=== PATIENT | female | born 1990 | race Caucasian/White ===

== ENCOUNTER 2016-12-10 04:51 | Emergency (ER) | payer MEDICAID ==
[~2016-12-10] VITALS: Ht 157.5 cm; Wt 93.6 kg
[2016-12-10] MEDS ORDERED: IBUP800T PO (05:11)
[2016-12-10] MEDS ORDERED: ALBUTEROL (05:13)
[2016-12-10] MEDS ORDERED: STEROID INHALER (05:13)
[2016-12-10] MEDS ORDERED: ALBUTEROL/IPRATROPIUM 2.5MG/0.5MG, 3 ML NPPB SCH (05:30)
[2016-12-10] MEDS ORDERED: ALBUTEROL/IPRATROPIUM 2.5MG/0.5MG, 3 ML ONE (05:33)
[2016-12-10 06:24] VITALS: BP 121/72
== END 2016-12-10 06:27 | disposition home or self-care (01) ==
LOC: ED 06:21
DX: J15.9 Unspecified bacterial pneumonia (principal); F17.210 Nicotine dependence, cigarettes, uncomplicated; G89.29 Other chronic pain; Z90.710 Acquired absence of both cervix and uterus
CPT/HCPCS: 71020; 94640; 99284; J7512; J7620

== ENCOUNTER 2017-12-21 14:43 | Emergency (ER) | payer MEDICAID ==
[~2017-12-21] VITALS: Ht 154.9 cm; Wt 96.3 kg
[~2017-12-21 14:43] MED LIST: ALBUTEROL; IBUP-1223 PO; STEROID INHALER
[2017-12-21 15:22] LABS: BASOPHILS # (AUTO) 0.03 x10^3/uL (0-0.1); BASOPHILS % (AUTO) 0 % (0-1); EOSINOPHILS # (AUTO) 0.23 x10^3/uL (0-0.4); EOSINOPHILS % (AUTO) 3 % (1-7); LYMPHOCYTES # (AUTO) 2.04 x10^3/uL (1-3.4); LYMPHOCYTES % (AUTO) 25 % (22-44); MD NO; MEAN CORPUSCULAR HEMOGLOBIN 31.7 pg (27.0-34.8); MEAN CORPUSCULAR HGB CONC 33.8 g/dL (32.4-35.8); MEAN CORPUSCULAR VOLUME 93.7 fL (80-100); MEAN PLATELET VOLUME 7.2 fL (7.4-10.4); MONOCYTES # (AUTO) 0.44 x10^3/uL (0.2-0.8); MONOCYTES % (AUTO) 5 % (2-9); NEUTROPHILS # (AUTO) 5.42 x10^3/uL (1.8-6.8); NEUTROPHILS % (AUTO) 67 % (42-75); PLATELET COUNT 402 x10^3/uL (130-400); RED BLOOD COUNT 4.83 x10^6/uL (3.82-5.3); RED CELL DISTRIBUTION WIDTH 13.3 % (9.6-15.2)
[2017-12-21 15:31] LABS: ALANINE AMINOTRANSFERASE 60 U/L (12-78); ALBUMIN 3.6 g/dL (3.4-5.0); ANION GAP 7 mmol/L (5-15); CALCIUM 8.4 mg/dL (8.5-10.1); CHLORIDE 107 mmol/L (98-107); CREATININE 0.93 mg/dL (0.55-1.02)
[2017-12-21 15:34] LABS: ALKALINE PHOSPHATASE 67 U/L (45-117); BILIRUBIN,TOTAL 0.5 mg/dL (0.2-1.0); TOTAL PROTEIN 7.7 g/dL (6.4-8.2)
[2017-12-21 15:36] LABS: MICROSCOPIC INDICATED
[2017-12-21 15:47] LABS: CULTURE INDICATED? YES
[2017-12-21 15:52] VITALS: BP 110/73
[2017-12-21] MEDS ORDERED: SODIUM CHLORIDE 0.9% 1,000ML IVBOLUS ONE (16:00)
[2017-12-21] MEDS ORDERED: MORPHINE SULFATE 4 MG/ML, 1ML IVPush PRN (16:00)
[2017-12-21] MEDS ORDERED: SODIUM CHLORIDE FLUSH 10ML SYR IVF ONE (16:00)
[2017-12-21] MEDS ORDERED: FAMOTIDINE 20 MG/2 ML IVP ONE (16:00)
[2017-12-21] MEDS ORDERED: OMNIPAQUE 350 MG/ML, 100ML BOTTLE ONE (16:08)
[2017-12-21] MEDS ORDERED: FAMOTIDINE 20 MG/2 ML ONE (16:09)
[2017-12-21] MEDS ORDERED: MORPHINE SULFATE 4 MG/ML, 1ML ONE (16:09)
== END 2017-12-21 17:02 | disposition home or self-care (01) ==
LOC: ED 16:40
DX: R10.31 Right lower quadrant pain (principal); R11.2 Nausea with vomiting, unspecified; R19.7 Diarrhea, unspecified; G43.909 Migraine, unspecified, not intractable, without status migrainosus
CPT/HCPCS: 36415; 74177; 80053; 81001; 83690; 85025; 87086; 96374; 96375; 99285; J7030; Q9967; S0028

== ENCOUNTER 2018-06-30 14:14 | Emergency (ER) | payer MEDICAID, OTHER ==
[~2018-06-30] VITALS: Ht 154.9 cm; Wt 129.0 kg
[2018-06-30 14:17] VITALS: BP 117/83
[2018-06-30] MEDS ORDERED: DEXAMETHASONE 4 MG/ML, 1ML ONE (14:47)
[2018-06-30] MEDS ORDERED: DEXAMETHASONE 4 MG/ML, 1ML PO ONE (15:00)
== END 2018-06-30 15:13 | disposition home or self-care (01) ==
LOC: ED 14:45
DX: B34.9 Viral infection, unspecified (principal); F17.200 Nicotine dependence, unspecified, uncomplicated; G43.909 Migraine, unspecified, not intractable, without status migrainosus
CPT/HCPCS: 71046; 99283; J1100

== ENCOUNTER 2018-08-02 19:54 | Emergency (ER) | payer OTHER ==
[~2018-08-02] VITALS: Ht 154.9 cm; Wt 107.7 kg
[2018-08-02 20:07] VITALS: BP 134/88
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
[2018-08-02] MEDS ORDERED: IBUPROFEN 200 MG TABLET ONE (20:25)
--- NOTE | 2018-08-02 20:26 | NUR ---
pt to xray
[2018-08-02] MEDS ORDERED: IBUPROFEN 200 MG TABLET PO ONE (20:30)
--- NOTE | 2018-08-02 20:37 | NUR ---
PT MEDICATED PER SEP, AWAITING XRAY RESULTS
--- NOTE | 2018-08-02 20:47 | NUR ---
PROVIDED PT WITH WARM BLANKET, DENIES FURTHER NEEDS. AWAITING XRAY RESULT
== END 2018-08-02 21:11 | disposition home or self-care (01) ==
LOC: ED 21:05
DX: S43.402A Unspecified sprain of left shoulder joint, initial encounter (principal); G89.29 Other chronic pain; G43.909 Migraine, unspecified, not intractable, without status migrainosus; V49.49XA Driver injured in collision with other motor vehicles in traffic accident, initial encounter; Y93.89 Activity, other specified; Y92.89 Other specified places as the place of occurrence of the external cause; Y99.8 Other external cause status
CPT/HCPCS: 72050; 99283

== ENCOUNTER 2018-09-28 14:48 | Emergency (ER) | payer BC ==
[~2018-09-28] VITALS: Ht 154.9 cm; Wt 108.4 kg
[2018-09-28 15:09] LABS: BASOPHILS # (AUTO) 0.05 x10^3/uL (0-0.1); BASOPHILS % (AUTO) 1 % (0-1); EOSINOPHILS # (AUTO) 0.44 x10^3/uL (0-0.4); EOSINOPHILS % (AUTO) 5 % (1-7); LYMPHOCYTES # (AUTO) 2.99 x10^3/uL (1-3.4); LYMPHOCYTES % (AUTO) 31 % (22-44); MD NO; MEAN CORPUSCULAR HEMOGLOBIN 31.6 pg (27.0-34.8); MEAN CORPUSCULAR HGB CONC 33.5 g/dL (32.4-35.8); MEAN CORPUSCULAR VOLUME 94.2 fL (80-100); MEAN PLATELET VOLUME 7.4 fL (7.4-10.4); MONOCYTES # (AUTO) 0.54 x10^3/uL (0.2-0.8); MONOCYTES % (AUTO) 6 % (2-9); NEUTROPHILS % (AUTO) 58 % (42-75); PLATELET COUNT 389 x10^3/uL (130-400); RED BLOOD COUNT 4.47 x10^6/uL (3.82-5.3); RED CELL DISTRIBUTION WIDTH 13.3 % (9.6-15.2)
[2018-09-28 15:21] LABS: ALANINE AMINOTRANSFERASE 69 U/L (12-78); ALBUMIN 3.9 g/dL (3.4-5.0); ANION GAP 7 mmol/L (5-15); CALCIUM 8.1 mg/dL (8.5-10.1); CHLORIDE 106 mmol/L (98-107); CREATININE 0.95 mg/dL (0.55-1.02)
[2018-09-28 15:25] LABS: ALKALINE PHOSPHATASE 53 U/L (45-117); BILIRUBIN,TOTAL 0.3 mg/dL (0.2-1.0); TOTAL PROTEIN 7.6 g/dL (6.4-8.2)
[2018-09-28 15:56] LABS: MICROSCOPIC AUTO
[2018-09-28 15:57] LABS: CULTURE INDICATED? YES
--- NOTE | 2018-09-28 16:00 | NUR ---
PT. IS A & O X 4 WITH C/O RIGHT FLANK PAIN AND UTI SYMPTOMS. PT. IS PINK,WARM AND DRY. LUNGS ARE CTA. MM ARE PINK AND MOIST WITH PULSES +2 THROUGHOUT. PT. WAS GIVEN A BLANKET FOR WARMTH. PT.'S ABD. IS SOFT AND NON-TENDER WITH BS + X 4 QUADS.
--- NOTE | 2018-09-28 16:23 | NUR ---
Patient/Caregiver given discharge instructions and they have confirmed that they understand the instructions. Patient ambulatory with steady gait.
[2018-09-28 16:26] VITALS: BP 125/72
== END 2018-09-28 16:29 | disposition home or self-care (01) ==
LOC: ED 16:09
DX: N30.01 Acute cystitis with hematuria (principal); G43.909 Migraine, unspecified, not intractable, without status migrainosus; Z90.710 Acquired absence of both cervix and uterus; F17.200 Nicotine dependence, unspecified, uncomplicated
CPT/HCPCS: 36415; 80053; 81001; 84703; 85025; 87077; 87086; 87186; 99283

== ENCOUNTER 2019-05-23 20:10 | Emergency (ER) | payer MEDICAID ==
[~2019-05-23] VITALS: Ht 160 cm; Wt 104.0 kg
[2019-05-23 20:16] VITALS: BP 120/75
[2019-05-23] MEDS ORDERED: DEXAMETHASONE 4 MG TABLET PO ONE (22:00)
[2019-05-23 22:13] LABS: RAPID INFLUENZA A Negative (Negative); RAPID INFLUENZA B Negative (Negative)
[2019-05-23] MEDS ORDERED: DEXAMETHASONE 4 MG TABLET ONE (22:30)
--- NOTE | 2019-05-23 22:33 | NUR ---
MEDICATED PER EMAR
== END 2019-05-23 22:54 | disposition home or self-care (01) ==
LOC: ED 22:30
DX: J02.0 Streptococcal pharyngitis (principal); H69.83 Other specified disorders of Eustachian tube, bilateral; F17.210 Nicotine dependence, cigarettes, uncomplicated
CPT/HCPCS: 71046; 87081; 87147; 87400; 87880; 99284

== ENCOUNTER 2020-05-17 12:37 | Emergency (ER) | payer MEDICAID ==
[~2020-05-17] VITALS: Ht 154.9 cm; Wt 107.0 kg
[2020-05-17] MEDS ORDERED: IBUPROFEN 800 MG TABLET ONE (13:13)
--- NOTE | 2020-05-17 13:19 | NUR ---
PT TO XR.
--- NOTE | 2020-05-17 13:28 | NUR ---
ALL TESTS RESULTED. PT IS UP FOR RECHECK AT THIS TIME.
[2020-05-17] MEDS ORDERED: IBUPROFEN 200 MG TABLET PO ONE (13:30)
[2020-05-17 13:45] VITALS: BP 128/74
== END 2020-05-17 13:50 | disposition home or self-care (01) ==
LOC: ED 13:12
DX: S43.402A Unspecified sprain of left shoulder joint, initial encounter (principal); E11.9 Type 2 diabetes mellitus without complications; G43.909 Migraine, unspecified, not intractable, without status migrainosus; W17.89XA Other fall from one level to another, initial encounter; Y93.89 Activity, other specified; Y92.098 Other place in other non-institutional residence as the place of occurrence of the external cause; Y99.8 Other external cause status
CPT/HCPCS: 99283

== ENCOUNTER 2020-12-04 09:31 | Emergency (ER) | payer MEDICAID ==
[~2020-12-04] VITALS: Ht 154.9 cm; Wt 105.1 kg
[2020-12-04 10:22] LABS: MICROSCOPIC INDICATED
[2020-12-04 10:57] LABS: BASOPHILS % (AUTO) 1 % (0-1); EOSINOPHILS % (AUTO) 4 % (1-7); LYMPHOCYTES % (AUTO) 30 % (22-44); MD NO; MEAN CORPUSCULAR HEMOGLOBIN 33.2 pg (27.0-34.8); MEAN CORPUSCULAR HGB CONC 35.1 g/dL (32.4-35.8); MEAN PLATELET VOLUME 7.4 fL (7.4-10.4); MONOCYTES % (AUTO) 5 % (2-9); NEUTROPHILS % (AUTO) 60 % (42-75); PLATELET COUNT 336 x10^3/uL (130-400); RED BLOOD COUNT 4.68 x10^6/uL (3.82-5.3); RED CELL DISTRIBUTION WIDTH 13.2 % (9.6-15.2)
[2020-12-04 11:04] VITALS: BP 95/56
[2020-12-04 11:08] LABS: ALANINE AMINOTRANSFERASE 74 U/L (12-78); ALBUMIN 3.3 g/dL (3.4-5.0); ANION GAP 5 mmol/L (5-15); CALCIUM 8.1 mg/dL (8.5-10.1); CHLORIDE 110 mmol/L (98-107); CREATININE 0.86 mg/dL (0.55-1.02)
[2020-12-04 11:10] LABS: ALKALINE PHOSPHATASE 58 U/L (45-117); BILIRUBIN,TOTAL 0.3 mg/dL (0.2-1.0); TOTAL PROTEIN 6.4 g/dL (6.4-8.2)
--- NOTE | 2020-12-04 11:17 | NUR ---
PT BACK FROM CT
== END 2020-12-04 12:03 | disposition home or self-care (01) ==
LOC: ED 10:21
DX: N30.00 Acute cystitis without hematuria (principal); Z90.710 Acquired absence of both cervix and uterus
CPT/HCPCS: 36415; 74176; 80053; 81001; 83690; 85025; 87077; 87086; 87186; 99284